=== PATIENT | male | born 2000 | race Caucasian/White ===

== ENCOUNTER 2024-11-07 06:32 | Day surgery (SDC) | payer OTHER ==
[2024-11-03 11:00] VITALS: BMI 25.5
[2024-11-07] MEDS ORDERED: METHYLENE BLUE 50 MG/10 ML AMPUL ONE (11:03)
[2024-11-07] MEDS ORDERED: MIDAZOLAM HCL 2 MG/2 ML SINGLE DOSE VIAL ONE ×2 (11:11→11:52)
[2024-11-07] MEDS ORDERED: SUCCINYLCHOLINE CHLORIDE 200 MG/10 ML SYRINGE ONE (11:16)
[2024-11-07] MEDS ORDERED: PROPOFOL 20 ML ONE (11:16)
[2024-11-07] MEDS ORDERED: ceFAZolin SODIUM 1 GM VIAL ONE (11:54)
[2024-11-07] MEDS: ceFAZolin SODIUM 1 GM VIAL IVPB ONE (11:55)
[2024-11-07] MEDS ORDERED: oxyCODONE HCL 5 MG TABLET PO PRN (12:35)
[2024-11-07] MEDS ORDERED: ONDANSETRON 4 MG/2 ML VIAL IVPUSH PRN (12:35)
[2024-11-07 18:21] VITALS: RESP 18
[2024-11-07 19:32] VITALS: BP 120/72; PULSE 64; TEMP 98.6
== END 2024-11-07 19:15 | disposition home or self-care (01) ==
LOC: JASU-SURG 06:32
PROVIDERS: ATTEND Surgery
PROC: 0JB90ZZ Excision of Buttock Subcutaneous Tissue and Fascia, Open Approach (ICD-10-PCS; principal; 2024-11-07 12:00)
DX: L05.91 Pilonidal cyst without abscess (principal)
CPT/HCPCS: 88304-TC; 94760; Q9968